=== PATIENT | male | born 1945 | race American Indian/Alaskan Native ===

== ENCOUNTER 2021-01-20 10:15 | Observation (INO) | payer MEDICARE ==
--- NOTE | 2021-01-20 11:05 | Emergency Department Report ---
Blank Doc - Documentation Documentation: 75-year-old male that presents with weakness and dizziness. exam: Neuro exam unremarkable 1- This is a initial triage assessment/medical screening only. Full assessment and work-up will be completed once the patient is in proper hospital gown, ED bed and in a private room setting. This initial assessment/diagnostic orders/clinical plan/ treatment(s) is/are subject to change based on pt's health status, clinical progression and re-assessment by fellow clinical providers in the ED. Further treatment and workup at subsequent clinical providers discretion. Patient/guardians urged not to elope from ED as their condition may be serious if not clinically assessed and managed. 2-cardiac work-up
--- NOTE | 2021-01-20 11:24 | XRay Report ---
XR chest routine 2V INDICATION / CLINICAL INFORMATION: Chest Pain. COMPARISON: None available. FINDINGS: SUPPORT DEVICES: None. HEART /PULMONARY VASCULATURE: No significant abnormality. LUNGS / PLEURA: No significant pulmonary or pleural abnormality. No pneumothorax. ADDITIONAL FINDINGS: No significant additional findings. IMPRESSION: 1. No acute findings. Signer Name: Broderick Davalos MD Signed: 01/20/2021 11:19 AM Workstation Name: [id number]
[2021-01-20 11:51] LABS: Hematocrit 34.2 % (35.5-45.6); Hemoglobin 11.9 gm/dl (11.8-15.2); Mean Corpuscular HGB Conc 35 % (32-34); Mean Corpuscular Volume 90 fl (84-94); Platelet Count 192 K/mm3 (140-440); Red Blood Count 3.81 M/mm3 (3.65-5.03); Red Cell Distribution Width 15.5 % (13.2-15.2)
[2021-01-20 12:32] LABS: Alanine Aminotransferase 6 units/L (7-56); Albumin 3.9 g/dL (3.9-5); BUN/Creatinine Ratio 11; Blood Urea Nitrogen 10 mg/dL (9-20); Calcium 9.6 mg/dL (8.4-10.2); Hemolysis Index 2
[2021-01-20] MEDS ORDERED: POTASSIUM CHLORIDE ER 20 MEQ TAB PO ONE (12:40)
[2021-01-20 13:01] LABS: INR 1.07 (0.87-1.13)
[2021-01-20 13:02] LABS: Partial Thromboplastin Time 39.1 Sec. (24.2-36.6)
[2021-01-20 13:22] LABS: Total Cells Counted 100
[2021-01-20 13:24] LABS: Hypersegmented Neutrophils 1+; Ovalocytes 1+; Platelet Estimate Consistent w Auto
--- NOTE | 2021-01-20 13:41 | Emergency Department Report ---
HPI - General Chief Complaint: Dizziness Time Seen by Provider: 01/20/21 10:30 - HPI HPI: Room 1 The patient is a 75-year-old male present with a chief complaint of lightheadedness. The patient's daughter states she brought the patient in she feels he is dehydrated. She states the patient has not been eating for the past 5 days. She states for the past 2 to 3 days the patient has been complaining of lightheadedness and almost falls when he walks. Patient currently denies pain of any type denied ever having chest pain or shortness of breath. Patient denies nausea vomiting. When asked why he is not eating the patient states he loses his appetite frequently. Patient currently denies complaints currently stating he feels good. When asked how she is been feeling over the past few days the patient states "it is hard to explain." Patient denies actually having pain but states he has an "annoying feeling" intermittently. Patient states he cannot describe what he is feeling but is not pain. ED Past Medical Hx - Past Medical History Previous Medical History?: No - Surgical History Past Surgical History?: Yes Additional Surgical History: left leg - Family History Family history: no significant - Social History Smoking Status: Former Smoker (None x40 years) Substance Use Type: None (Denies illicit drug use) ED Review of Systems ROS: Stated complaint: LIGHT HEADED, DEHYDRATED, Other details as noted in HPI Constitutional: denies: fever Eyes: denies: eye pain ENT: denies: throat pain Respiratory: denies: shortness of breath Cardiovascular: denies: chest pain Endocrine: no symptoms reported Gastrointestinal: denies: abdominal pain, nausea, vomiting Genitourinary: denies: dysuria Musculoskeletal: denies: back pain Neurological: headache, other (Lightheadedness) Physical Exam - Physical Exam Vital Signs: Vital Signs 01/20/21 01/20/21 10:27 10:28 Temperature 98.5 F Pulse Rate 102 H Respiratory 16 Rate Blood Pressure 112/62 O2 Sat by Pulse 100 Oximetry Physical Exam: GENERAL: The patient is well-developed well-nourished male lying on stretcher not appearing to be in acute distress. [] HEENT: Normocephalic. Atraumatic. Extraocular motions are intact. Patient has moist mucous membranes. NECK: Supple. Trachea midline CHEST/LUNGS: Clear to auscultation. There is no respiratory distress noted. HEART/CARDIOVASCULAR: Regular. There is no tachycardia. There is no gallop rub or murmur. ABDOMEN: Abdomen is soft, nontender. Patient has normal bowel sounds. There is no abdominal distention. SKIN: There is no rash. There is no edema. There is no diaphoresis. NEURO: The patient is awake, alert, and oriented. The patient is cooperative. The patient has no focal neurologic deficits. The patient has normal speech. Cranial nerves II through XII grossly intact MUSCULOSKELETAL: There is no evidence of acute injury. ED Course Vital Signs 01/20/21 01/20/21 10:27 10:28 Temperature 98.5 F Pulse Rate 102 H Respiratory 16 Rate Blood Pressure 112/62 O2 Sat by Pulse 100 Oximetry ED Medical Decision Making - Lab Data Result diagrams: 01/20/21 11:09 01/20/21 11:09 Laboratory Tests 01/20/21 01/20/21 01/20/21 11:09 11:09 11:09 WBC 4.4 L RBC 3.81 Hgb 11.9 Hct 34.2 L MCV 90 MCH 31 MCHC 35 H RDW 15.5 H Plt Count 192 [place] % (Auto) Cardiac Tech Add Manual Diff Complete Total Counted 100 Seg Neuts % (Manual) 84.0 H Lymphocytes % (Manual) 10.0 L Monocytes % (Manual) 6.0 Nucleated RBC % Not Reportable Seg Neutrophils # Man 3.7 Band Neutrophils # 0.0 Lymphocytes # (Manual) 0.4 L Abs React Lymphs (Man) 0.0 Monocytes # (Manual) 0.3 Eosinophils # (Manual) 0.0 Basophils # (Manual) 0.0 Metamyelocytes # 0.0 Myelocytes # 0.0 Promyelocytes # 0.0 Blast Cells # 0.0 WBC Morphology Not Reportable Hypersegmented Neuts 1+ Hyposegmented Neuts Not Reportable Hypogranular Neuts Not Reportable Smudge Cells Not Reportable Toxic Granulation Not Reportable Toxic Vacuolation Not Reportable Dohle Bodies Not Reportable Pelger-Huet Anomaly Not Reportable Meg Rods Not Reportable Platelet Estimate Consistent w auto Clumped Platelets Not Reportable Plt Clumps, EDTA Not Reportable Large Platelets Not Reportable Giant Platelets Not Reportable Platelet Satelliting Not Reportable Plt Morphology Comment Not Reportable RBC Morphology Not Reportable Dimorphic RBCs Not Reportable Polychromasia Not Reportable Hypochromasia Not Reportable Poikilocytosis Not Reportable Anisocytosis Not Reportable Microcytosis Not Reportable Macrocytosis Not Reportable Spherocytes Not Reportable Pappenheimer Bodies Not Reportable Sickle Cells Not Reportable Target Cells Not Reportable Tear Drop Cells Not Reportable Ovalocytes 1+ Helmet Cells Not Reportable Gipson-Drayton Bodies Not Reportable [place] Rings Not Reportable [place] Cells Not Reportable Bite Cells Not Reportable Crenated Cell Not Reportable Elliptocytes Not Reportable Acanthocytes (Spur) Not Reportable Rouleaux Not Reportable Hemoglobin C Crystals Not Reportable Schistocytes Not Reportable Malaria parasites Not Reportable Roel Bodies Not Reportable Hem Pathologist Commnt No PT 14.5 INR 1.07 APTT 39.1 H Sodium 134 L Potassium 2.5 L* Chloride 90.4 L Carbon Dioxide 32 H Anion Gap 14 BUN 10 Creatinine 0.9 Estimated GFR > 60 BUN/Creatinine Ratio 11 Glucose 109 H Calcium 9.6 Total Bilirubin 1.80 H AST 15 ALT 6 L Alkaline Phosphatase 57 Troponin T < 0.010 Total Protein 7.6 Albumin 3.9 Albumin/Globulin Ratio 1.1 - EKG Data -: EKG Interpreted by Me EKG shows normal: sinus rhythm Rate: normal - EKG Data When compared to previous EKG there are: previous EKG unavailable Interpretation: nonspecific ST-T wave gregory (T wave inversions in leads V2, V3) - Radiology Data Radiology results: report reviewed (Chest x-ray, CT head), image reviewed (Chest x-ray, CT head) interpreted by me: Chest x-ray-no focal infiltrates, no pneumothorax. No foreign body seen [facility] [address] [place] [address] XRay Report Signed Patient: CALI NARVAEZ MR#: [id number] : 1945 Acct:[id number] Age/Sex: 75 / M ADM Date: 01/20/21 Loc: ED Attending Dr: Ordering Physician: COLBY RICCI NP Date of Service: 01/20/21 Procedure(s): XR chest routine 2V Accession Number(s): [id number] cc: COLBY RICCI NP Fluoro Time In Minutes: XR chest routine 2V INDICATION / CLINICAL INFORMATION: Chest Pain. COMPARISON: None available. FINDINGS: SUPPORT DEVICES: None. HEART /PULMONARY VASCULATURE: No significant abnormality. LUNGS / PLEURA: No significant pulmonary or pleural abnormality. No pneumothorax. ADDITIONAL FINDINGS: No significant additional findings. IMPRESSION: 1. No acute findings. Signer Name: Lety Davalos MD Signed: 01/20/2021 11:19 AM Workstation Name: [id number] Transcribed By: JS Dictated By: LETY DAVALOS MD Electronically Authenticated By: LETY DAVALOS MD Signed Date/Time: 01/20/211118 DD/ 18 TD/TT: Print Cancel [facility] [address] [place] [address] Cat Scan Report Signed Patient: CALI NARVAEZ MR#: [id number] : 1945 Acct:[id number] Age/Sex: 75 / M ADM Date: 01/20/21 Loc: ED Attending Dr: Ordering Physician: EVA ADAMSON MD Date of Service: 01/20/21 Procedure(s): CT head/brain wo con Accession Number(s): [id number] cc: EVA ADAMSON MD CT HEAD WITHOUT CONTRAST INDICATION / CLINICAL INFORMATION: Headache, lightheadedness. TECHNIQUE: Axial imaging performed from the skull apex through the skull base without the use of contrast. Sagittal and coronal reformatted images. All CT scans at this location are performed using CT dose reduction for ALARA by means of automated exposure control. COMPARISON: None available. FINDINGS: CEREBRAL PARENCHYMA: No significant abnormality. No acute territorial infarct. HEMORRHAGE: None. EXTRA-AXIAL SPACES: Normal in size and morphology for the patient's age. VENTRICULAR SYSTEM: Normal in size and morphology for the patient's age. MIDLINE SHIFT OR HERNIATION: None. CEREBELLUM / BRAINSTEM: No significant abnormality. CALVARIUM: No significant abnormality. ORBITS: Normal as visualized. PARANASAL SINUSES / MASTOID AIR CELLS: Normal as visualized. SOFT TISSUES of HEAD: No significant abnormality. ADDITIONAL FINDINGS: None. IMPRESSION: No acute intracranial abnormality. Signer Name: Willard Forbes Jr, MD Signed: 01/20/2021 2:11 PM Workstation Name: [id number] Transcribed By: DORIE Dictated By: WILLARD FORBES JR, MD Electronically Authenticated By: WILLARD FORBES JR, MD Signed Date/Time: 01/20/211410 DD/ 09 TD/TT: Print Cancel - Differential Diagnosis Dehydration, symptomatic anemia, dementia, intracranial mass Critical care attestation.: If time is entered above; I have spent that time in minutes in the direct care of this critically ill patient, excluding procedure time. ED Disposition Clinical Impression: Hypokalemia Disposition: OP ADMIT IP TO THIS HOSP Is pt being admited?: Yes Does the pt Need Aspirin: No Condition: Fair Time of Disposition: 14:28 (Hospitalist notified (Dr. Seals))
[2021-01-20] MEDS: POTASSIUM CHLORIDE 10 MEQ 10 MEQ/100 ML BAG IV SCH ×4 (13:49→18:29)
--- NOTE | 2021-01-20 14:15 | Cat Scan Report ---
CT HEAD WITHOUT CONTRAST INDICATION / CLINICAL INFORMATION: Headache, lightheadedness. TECHNIQUE: Axial imaging performed from the skull apex through the skull base without the use of cont rast. Sagittal and coronal reformatted images. All CT scans at this location are performed using CT dose reduction for ALARA by means of automated exposure control. COMPARISON: None available. FINDINGS: CEREBRAL PARENCHYMA: No significant abnormality. No acute territorial infarct. HEMORRHAGE: None. EXTRA-AXIAL SPACES: Normal in size and morphology for the patient's age. VENTRICULAR SYSTEM: Normal in size and morphology for the patient's age. MIDLINE SHIFT OR HERNIATION: None. CEREBELLUM / BRAINSTEM: No significant abnormality. CALVARIUM: No significant abnormality. ORBITS: Normal as visualized. PARANASAL SINUSES / MASTOID AIR CELLS: Normal as visualized. SOFT TISSUES of HEAD: No significant abnormality. ADDITIONAL FINDINGS: None. IMPRESSION: No acute intracranial abnormality. Signer Name: Willard Forbes Jr, MD Signed: 01/20/2021 2:11 PM Workstation Name: [id number]
--- NOTE | 2021-01-20 14:25 | History and Physical Report ---
History of Present Illness Chief complaint: He is confused and he is not eating anything History of present illness: 75 YO Male with Vascular Dementia without Behavioral Disturbance, Cerebral Atherosclerosis, Malnutrition, Debility complicated by multiple falls presents to ED for evaluation. Patient has diminished cognition and is unable to provide detailed history. Patient history provided by patient's daughter who is at bedside during exam and interview. Daughter reports "he is not eating and he is getting weak". Patient daughter reports that the patient had experienced increased weakness, increased confusion, as well as memory loss over the past 1 month with worsening symptoms over the past 5 days. Patient has increased bedbound status and requires standby assistance with transfers. Patient is nonambulatory for up to 23 hours/day, and requires 5/6 assistance with activities of daily living. Patient has a palliative performance score of 40%. Patient has been without oral intake over the past 5 days. Patient transported to [facility] via private vehicle for further care and evaluation of the aforementioned symptoms. The patient was seen and evaluated in the emergency department. All lab and imaging studies reviewed. Patient was found to have hypokalemia, volume depletion due to diminished oral intake. Patient placed in observation status and treated with IV fluid resuscitation therapy, and supportive care. No reports of fever, chills, chest pain, palpitation, productive cough, skin rash, recent ill contacts, or known exposure to COVID-19. No prior admission for review. All medication listed at time of admission has been reconciled. Advanced care planning conducted in ED. Patient daughter informed of patient diagnosis and prognosis. Patient daughter elects to have home hospice evaluation. Patient has diminished cognition but has a positive gag reflex and is able to protect his airway without difficulty. Past History Past Medical History: other (See HPI) Past Surgical History: No surgical history, Other (Reviewed) Social history: , lives with family Family history: hypertension Medications and Allergies Allergies Allergy/AdvReac Type Severity Reaction Status Date / Time No Known Allergies Allergy Unverified 01/20/21 10:24 Active Meds: Active Medications Potassium Chloride (Kcl 10meq/100ml) 10 meq in 100 mls @ 100 mls/hr IV Q1H MAGED Stop: 01/20/21 17:59 Last Admin: 01/20/21 13:49 Dose: 100 mls/hr Documented by: Review of Systems ROS unobtainable: due to mental status Exam - Constitutional Vitals: Temp Pulse Resp BP Pulse Ox 98.5 F 74 19 119/73 100 01/20/21 10:28 01/20/21 13:50 01/20/21 13:50 01/20/21 13:50 01/20/21 13:50 General appearance: Present: mild distress, cachectic - EENT ENT: hearing decreased - Neck Neck: Present: supple, normal ROM - Respiratory Respiratory effort: normal Respiratory: bilateral: CTA - Cardiovascular Heart Sounds: Present: S1 & S2. Absent: rub, click - Extremities Extremities: pulses symmetrical, No edema Peripheral Pulses: within normal limits - Abdominal General gastrointestinal: Present: soft, non-tender, non-distended, normal bowel sounds Male genitourinary: Present: normal - Integumentary Integumentary: Present: clear, dry, clammy, decreased turgor - Musculoskeletal Musculoskeletal: generalized weakness - Psychiatric Psychiatric: no appropriate mood/affect, no intact judgment & insight, no memory intact, agitated - Neurologic Neurologic: CNII-XII intact, moves all extremities, no gait normal HEART Score - HEART Score Troponin: Troponin T < 0.010 ng/mL (0.00-0.029) 01/20/21 11:09 Results - Labs CBC & Chem 7: 01/20/21 11:09 01/20/21 11:09 Labs: Abnormal lab results 01/20/21 01/20/21 01/20/21 Range/Units 11:09 11:09 11:09 WBC 4.4 L (4.5-11.0) K/mm3 Hct 34.2 L (35.5-45.6) % MCHC 35 H (32-34) % RDW 15.5 H (13.2-15.2) % Seg Neuts % (Manual) 84.0 H (40.0-70.0) % Lymphocytes % (Manual) 10.0 L (13.4-35.0) % Lymphocytes # (Manual) 0.4 L (1.2-5.4) K/mm3 APTT 39.1 H (24.2-36.6) Sec. Sodium 134 L (137-145) mmol/L Potassium 2.5 L* (3.6-5.0) mmol/L Chloride 90.4 L (98-107) mmol/L Carbon Dioxide 32 H (22-30) mmol/L Glucose 109 H (75-100) mg/dL Total Bilirubin 1.80 H (0.1-1.2) mg/dL ALT 6 L (7-56) units/L Assessment and Plan - Patient Problems (1) Vascular dementia without behavioral disturbance Current Visit: Yes Status: Acute Plan to address problem: Verbal prompting, verbal redirection, benzodiazepine therapy as clinically indicated, (2) Cerebral atherosclerosis Current Visit: Yes Status: Acute Plan to address problem: Antiplatelet therapy as clinically indicated, supportive care. (3) Malnutrition Current Visit: Yes Status: Acute Qualifiers: Malnutrition type: protein-calorie malnutrition Plan to address problem: Dietary supplementation, increase protein intake (4) Volume depletion Current Visit: Yes Status: Acute Plan to address problem: BMP, IV fluid resuscitation therapy, repeat BMP in a.m. (5) Debility Current Visit: Yes Status: Acute Plan to address problem: Fall risk protocol, supportive care. (6) Hypokalemia Current Visit: Yes Status: Acute Plan to address problem: Repleted in ED. (7) DVT prophylaxis Current Visit: Yes Status: Acute Plan to address problem: SCD to bilateral lower extremities while in bed, prophylactic anticoagulation (8) Advance care planning Current Visit: Yes Status: Acute Plan to address problem: Disease education conducted, care plan discussed, diagnosis discussed, prognosis discussed, patient daughter knowledges understanding and agreement with care plan. Patient daughter elects to have home hospice evaluation. Home hospice care team consulted. +30 minutes.
[2021-01-20] MEDS ORDERED: oxyCODONE /ACETAMINOPHEN 5-325MG TAB PO PRN (15:00)
[2021-01-20] MEDS ORDERED: ALBUTEROL 2.5 MG/3 ML NEBU IH PRN (15:00)
[2021-01-20] MEDS ORDERED: SODIUM CHLORIDE 0.9% 1000 ML 1,000 ML IV SCH (15:00)
[2021-01-20] MEDS ORDERED: MORPHINE 4 MG/1 ML INJ IV PRN (15:00)
[2021-01-20] MEDS ORDERED: ACETAMINOPHEN 325 MG TAB PO PRN (15:00)
[2021-01-20] MEDS ORDERED: ONDANSETRON 4 MG/2 ML INJ IV PRN (15:00)
[2021-01-20 17:40] LABS: Bilirubin,Urine NEG (Negative); Blood,Urine SM (Negative); Color,Urine Amber (Yellow); Mucus,Urine 3+ /HPF
--- NOTE | 2021-01-20 18:07 | Electrocardiograph Report ---
[facility] Test Date: 2021-01-20 Test Time: 10:33:41 Pat Name: CALI NARVAEZ Department: Room: [facility] Gender: M [employer]: SOPHIE : 1945 Requested By: COLBY RICCI Order Number: [id number] Reading MD: Johnathan Doherty Measurements Intervals [place] Rate: 94 P: 72 MN: 142 QRS: 85 QRSD: 97 T: 2 QT: 374 QTc: 469 Interpretive Statements Sinus rhythm Nonspecific ST abnormality No previous ECG available for comparison Electronically Signed On 01-20-2021 18:07:26 EDT by Johnathan Doherty
[2021-01-21 07:32] LABS: BUN/Creatinine Ratio 13; Blood Urea Nitrogen 9 mg/dL (9-20); Calcium 9.6 mg/dL (8.4-10.2); Hemolysis Index 16
[2021-01-21 08:29] VITALS: BP 112/75
--- NOTE | 2021-01-21 14:08 | Discharge Summary ---
Providers - Providers Date of Admission: 01/20/21 14:21 Attending physician: EMMA HERNANDEZ MD 01/21/21 09:00 Consult to Wound/ET Nurse [CONS] Routine Reason For Exam: wound wendyal Ce BOWERS Primary care physician: [facility]EM[facility] Hospitalization Reason for admission: Failure to thrive Condition: Stable Hospital course: 75 YO Male with Vascular Dementia without Behavioral Disturbance, Cerebral Atherosclerosis, Malnutrition, Debility complicated by multiple falls presents to ED for evaluation. Patient has diminished cognition and is unable to provide detailed history. Patient history provided by patient's daughter who is at bedside during exam and interview. Daughter reports "he is not eating and he is getting weak". Patient daughter reports that the patient had experienced increased weakness, increased confusion, as well as memory loss over the past 1 month with worsening symptoms over the past 5 days. Patient has increased bedbo und status and requires standby assistance with transfers. Patient is nonambulatory for up to 23 hours/day, and requires 5/6 assistance with activities of daily living. Patient has a palliative performance score of 40%. Patient has been without oral intake over the past 5 days. Patient transported to [facility] via private vehicle for further care and evaluation of the aforementioned symptoms. The patient was seen and evaluated in the emergency department. All lab and imaging studies reviewed. Patient was found to have hypokalemia, volume depletion due to diminished oral intake. Patient placed in observation status and treated with IV fluid resuscitation therapy, and supportive care. No reports of fever, chills, chest pain, palpitation, productive cough, skin rash, recent ill contacts, or known exposure to COVID-19. No prior admission for review. All medication listed at time of admission has been reconciled. Advanced care planning conducted in ED. Patient daughter informed of patient diagnosis and prognosis. Patient daughter elects to have home hospice evaluation. Patient has diminished cognition but has a positive gag reflex and is able to protect his airway without difficulty. Patient was seen and examined this morning potassium is improved. I did discuss extensively with the daughter who is agreeable with home hospice. She stated the patient only wants to eat things that are not healthy for him including PIG feet. We did have some counseling and discussion done patient verbalized understanding (1) Vascular dementia without behavioral disturbance Current Visit: Yes Status: Acute Plan to address problem: Verbal prompting, verbal redirection, benzodiazepine therapy as clinically indicated, (2) Cerebral atherosclerosis Current Visit: Yes Status: Acute Plan to address problem: Antiplatelet therapy as clinically indicated, supportive care. (3) Malnutrition Current Visit: Yes Status: Acute Qualifiers: Malnutrition type: protein-calorie malnutrition Plan to address problem: Dietary supplementation, increase protein intake (4) Volume depletion Current Visit: Yes Status: Acute Plan to address problem: BMP, IV fluid resuscitation therapy, repeat BMP in a.m. (5) Debility Current Visit: Yes Status: Acute Plan to address problem: Fall risk protocol, supportive care. (6) Hypokalemia Current Visit: Yes Status: Acute Plan to address problem: Repleted in ED. (7) DVT prophylaxis Current Visit: Yes Status: Acute Plan to address problem: SCD to bilateral lower extremities while in bed, prophylactic anticoagulation (8) Advance care planning Current Visit: Yes Status: Acute Plan to address problem: Disease education conducted, care plan discussed, diagnosis discussed, prognosis discussed, patient daughter knowledges understanding and agreement with care plan. Patient daughter elects to have home hospice evaluation. Home hospice care team consulted. +30 minutes. Disposition: DC- TO HOME OR SELFCARE Final Discharge Diagnosis (Prints w/discharge instructions): Adult failure to thrive Time spent for discharge: 35 minutes Core Measure Documentation - Palliative Care Palliative Care/ Comfort Measures: Not Applicable - Core Measures Any of the following diagnoses?: none Exam - Physical Exam Narrative exam: VITAL SIGNS: Reviewed. GENERAL: The patient appears normally developed, Vital signs as documented. HEAD: No signs of head trauma. Noted temporal wasting EYES: Pupils are equal. Extraocular motions intact. EARS: Hearing grossly intact. MOUTH: Oropharynx is normal. NECK: No adenopathy, no JVD. CHEST: Chest with clear breath sounds bilaterally. No wheezes, rales, or rhonchi. CARDIAC: Regular rate and rhythm. S1 and S2, without murmurs, gallops, or rubs. VASCULAR: No Edema. Peripheral pulses normal and equal in all extremities. ABDOMEN: Soft, non tender and non distended. No rebound or guarding, and no masses palpated. Bowel Sounds normal. MUSCULOSKELETAL: Good range of motion of all major joints. Extremities without clubbing, cyanosis or edema. NEUROLOGIC EXAM: Alert and oriented x 3 No focal sensory or strength deficits. Speech normal. Follows commands. PSYCHIATRIC: Mood normal. SKIN: detail exam as documented in skin assessment - Constitutional Vitals: Temp Pulse Resp BP Pulse Ox 98.1 F 88 18 112/75 100 01/21/21 08:00 01/21/21 08:00 01/21/21 08:00 01/21/21 08:00 01/21/21 08:00 Plan Activity: advance as tolerated, fall precautions Diet: low fat Special Instructions: record daily weights, record daily BP diary, home hospice Plan of Treatment: Continue prior home medications Follow up with: PRIMARY CAREMD [Primary Care Provider] - 7 Days
== END 2021-01-21 15:40 | disposition home or self-care (01) ==
LOC: ED 10:15 → 3A 14:21 → 3B-SURG 22:04
PROVIDERS: ADMIT Internal Medicine; ATTEND Internal Medicine
DX: I67.2 Cerebral atherosclerosis (principal); F01.50 Vascular dementia, unspecified severity, without behavioral disturbance, psychotic disturbance, mood disturbance, and anxiety; E87.6 Hypokalemia; E46 Unspecified protein-calorie malnutrition; E86.9 Volume depletion, unspecified; R53.81 Other malaise; R53.1 Weakness; R42 Dizziness and giddiness; Z68.20 Body mass index [BMI] 20.0-20.9, adult; Z87.891 Personal history of nicotine dependence
CPT/HCPCS: 36415; 70450; 71046; 80048; 80053; 81001; 83735; 84132; 84484; 85025; 85610; 85730; 87076; 87116; 87186; 93005; 96365; 96366; 99285; G0378; J3480; 85007